=== PATIENT | female | born 1955 | race Caucasian/White ===

== ENCOUNTER 2016-11-30 13:07 | Outpatient (CLI) ==
--- NOTE | 2016-11-30 14:16 | DI ---
EXAM: Lumbar spine five views HISTORY: Low back pain COMPARISON: 04/08/2014 TECHNIQUE: Five views lumbar spine were performed including oblique views FINDINGS: Sacroiliac joints intact. Sacral arcuate lines intact. Mild rightward curvature lumbar spine. Vertebral bodies normal in height. No fracture. No subluxation. Mild and mild to moderate multilevel intervertebral disc space narrowing. Small multilevel marginal osteophyte formation. M ultilevel facet arthrosis. IMPRESSION: Chronic discogenic degenerative disease and facet arthrosis. Rightward curvature lumba r spine.
== END 2016-11-30 13:08 | disposition home or self-care (01) ==
LOC: RAD 13:07
PROVIDERS: ATTEND General Practice
DX: M54.5 Low back pain (principal)

== ENCOUNTER 2017-01-04 13:53 | Outpatient (CLI) ==
--- NOTE | 2017-01-05 09:56 | MRI ---
EXAM: MRI lumbar spine without IV contrast. DATE: 04 January 2017. HISTORY: Lumbar back pain. TECHNIQUE: Sagittal and axial T1W and T2W sequences of the lumbar spine along with sagittal IR and coronal T2W sequences were obtained using 1.2 Suzi magnet. No IV contrast. COMPARISON: LS spine series 30 November 2016. FINDINGS: There are five [id number] lumbar vertebra. Mild rightward curvature of the lumbar s pine is present, with the apex of curvature at L3-4. A 1 mm anterior subluxation of L4 relative to L3 is noted. There is 3.5 mm right lateral subluxation of L4 relative to L5. No other subluxation, acute fracture, osseous malignancy, or pars interarticularis defect is identified. T2W/T1W bone ma rrow signal is heterogeneously bright. Chronic Schmorl's nodes are identified at T10, T11, T12, L1, L2, and L4. Anterolateral osteophytes are observed at multiple lumbar levels. Mild/moderate L1-2, moderate L2-3, moderate L3-4, and mild L5-S1 disc space narrowing is detected. No sacral fracture or stress reaction is identified. SI joints are unremarkable. Conus medullaris terminates at L1. Visible spinal cord is normal. No retroperitoneal lymphadenopathy, paraspinal mass, or aortic aneurysm is detected. Psoas muscles are normal. There is minor bilateral posterior paraspinal muscle fatty infiltration suggesting dedra r atrophy. Visible portions of the liver, spleen, adrenal glands, and kidneys are normal. No bowel obstruction or neoplasm is evident. Segmental analysis: T11-12: Minimal posterior disc bulge does not cause central stenosis or foraminal stenosis. T12-L1: Normal. L1-2: Small concentric disc bulge causes minimal bilateral foraminal encroachment. No central minnie l stenosis. L2-3: Small concentric disc bulge, minor bilateral facet arthropathy, and dorsal epidural fat cause triangulation of the canal and minimal bilateral inferior foraminal encroachment. L3-4: Small concentric disc bulge, mild bilateral facet arthropathy, and dorsal epidural fat cause mild central canal stenosis, minimal right foraminal narrowing, and mild left foraminal stenosis. L eft L3 nerve root touches disc bulge near the lateral margin of the foramen. L4-5: Small concentric disc bulge, superimposed midline disc protrusion (2 mm AP x 15 mm transverse ), minor facet arthropathy cause minor bilateral foraminal narrowing. No central canal stenosis. L5-S1: Small posterior to right foraminal disc bulge and minor right facet arthropathy cause mild r ight foraminal narrowing. The right L5 nerve root contacts the disc bulge near the lateral margin o f the foramen. No central canal stenosis. IMPRESSIONS: 1. Lumbar spine mild dextroscoliosis, mild/moderate spondylosis, mild facet arthropathy, and multil evel DDD. 2. Multilevel foraminal narrowing (minimal/mild). Left L3 and right L5 nerve roots contact disc bu lges near the foramen, and could be sources for pain/radiculopathy. 3. Triangulation of canal at L2-3. Mild central stenosis at L3-4. 4. T2W/T1W bright marrow signal - osteopenia/fatty infiltration. 5. T - L-spine small, chronic Schmorl's nodes.
== END 2017-01-04 13:54 | disposition home or self-care (01) ==
LOC: RAD 13:53
PROVIDERS: ATTEND General Practice
DX: M54.9 Dorsalgia, unspecified (principal); M54.10 Radiculopathy, site unspecified

== ENCOUNTER 2017-02-10 15:41 | Outpatient (CLI) ==
[2017-02-11 06:02] LABS: CALCIUM 9.9 mg/dL (8.2-10.2); MAGNESIUM 2.9 mg/dL (1.7-2.2); POTASSIUM 3.8 mmol/L (3.5-5.10)
== END 2017-02-10 15:42 | disposition home or self-care (01) ==
LOC: LAB 15:41
PROVIDERS: ATTEND General Practice
DX: R25.2 Cramp and spasm (principal); R61 Generalized hyperhidrosis
CPT/HCPCS: 36415; 82310; 83735; 84132

== ENCOUNTER 2017-02-15 06:40 | Outpatient (CLI) ==
--- NOTE | 2017-02-15 14:39 | STRESSECHO ---
Date of Test: 02/15/17 Reason for Exam: CHEST PAIN, FAMILY HX-MOTHER, BROTHER Ordering Physician: MIGUEL Current Medications: HYDROXYZINE, LORAZEPAM, METOPROLOL, RANITIDINE Resting EKG: SINUS RHYTHM/NO ACUTE CHANGES Target Heart Rate: 135/159 STAGE MPH/GRADE HEART RATE BPM BLOOD PRESSURE mmhg RHYTHM S-T SEGMENT +/- UP DOWN SYMPTOMS,COMMENTS At Rest 80 110/60 SR X NONE 1 1.7/10% 2 2.5/12% 3 3.4/14% 4 4.2/16% 5 5.0/18% Immediately after 153 180/90 SR X SHORT OF BREATH Durations of Exercise: 1:22 Maximum Heart Rate Reached: 153 Reason for Termination: SHORT OF BREATH 5 MIN POST EXERCISE: HR 85 BPM, BP 140/80 MMHG, SINUS RHYTHM, +/- INTERPRETATION: 97% OXYGEN SATURATION ON ROOM AIR WITH EXERCISE/ 98% WITH EXERCISE 1. NO EVIDENCE OF ISCHEMIA BY ST-T WAVE 2. NO CHEST PAIN OR CHEST DISCOMFORT 3. POOR EXERCISE TOLERANCE 4. NO ARRHYTHMIAS 5. BLOOD PRESSURE RESPONSE: HYPERTENSION WITH EXERCISE NORMAL LEFT VENTRICULAR CONTRACTILITY--RESTING AND POST EXERCISE MTDD
--- NOTE | 2017-02-15 14:44 | ECHOSTRESS ---
Date of Exam: 02/15/17 Ordering Physician: MIGUEL Reason for Echo: CHEST PAIN, STRESS TEST--NO ISCHEMIA M-Mode Normal Adult Results LV Dimensions Normal Adult Results AoV Opening excursions >1.6 LVEDD-base- 3.5-5.8 Ao root dimensions 2.0-3.7 LVESD-base- 3.1-4.6 L. Atrium dimensions 1.9-3.8 Post. Wall thickness 0.8-1.1 IV septum (thickness) 0.7-1.2 Post. Wall excursion 0.72-1.3 Septal motion Systolic motion R. Ventricular cavity 1.5-2.0 LVEF 60% Paradoxical septal wall motion 2-D: NORMAL LEFT VENTRICULAR CONTRACTILITY--RESTING AND POST EXERCISE M-MODE: MV: AV: TV: PV: CHAMBER SIZE: WALL MOTION: NORMAL LEFT VENTRICULAR CONTRACTILITY--RESTING AND POST EXERCISE PERICARDIUM: INTERPRETATION: 1. NORMAL LEFT VENTRICULAR CONTRACTILITY--RESTING AND POST EXERCISE MTDD
== END 2017-02-15 06:41 | disposition home or self-care (01) ==
LOC: CAR 06:40
PROVIDERS: ATTEND General Practice
DX: R07.9 Chest pain, unspecified (principal)

== ENCOUNTER 2017-02-22 10:11 | Outpatient (RCR) ==
--- NOTE | 2017-02-23 11:00 | RS.OPPTEV2 ---
Date of Note: 02/22/17 Visit #: 1 Date of Evaluation: 02/22/17 Treatment Diagnosis: Low back pain, Right LE pain History of Condition/Mechanism of Injury:: States pain in her right leg has progressively gotten worse. She has had a history of back pain for a few years. States she has recently had more pain, but no specific onset or injury is known. Functional Limitations: Sleep, ADL's, Sitting, Standing, Bending, Squatting, Ambulation, Community Access/Integration Current Subjective/complaints:: Patient reports low back pain with right LE pain. States she cannot tolerate sitting or standing too long. She works for [employer] in housekeeping. States bending, mopping, and sweeping causes increased pain. States she has been trying to walk for exercise, but on the way back, she feels like she might not make it because of increased pain. States some days are worse than others. States she has pain into the right LE on a daily basis. States sometimes it goes all the way to the foot, other times it does not go as far. Reports she occasionally feels like the right leg will give out. States sleep is sometimes affected. Treatment Side (optional): Right Medical History Smoking Status: Former smoker Hx Home Medications: Ultram Patient's Goals: Her goal is to get relief of pain. Pain Assessment - Pain Description Pain Location: low back and right LE Pain Description: Radiating, Aching Current Pain Intensity: 7/10 Worst Pain Intensity: not rated Functional Outcome Measure Oswestry LBP: 54 - G Codes & Severity Modifier G Codes & Modifier: NA Source of G Code score: Na Observation - Observation Posture: Forward Head, Rounded Shoulders, Increased Lumbar Lordosis Gait - Gait Pattern Gait Comments: Patient ambulates without an assistive device with flexed posture at lumbar spine and hips and increased lumbar lordosis. Demonstrates decreased stance on the right LE during stance phase. - ROM Lumbar Flexion: Hand reach to patellae Sidebending to Left: Reach to Mid-thigh Sidebending to Right: Reach to Mid-thigh Comments: Patient reports increased right leg pain with lumbar flexion, extension and side bending to the right. Tolerates lumbar extension to approximately 15 degrees beyond neutral. Right hip joint mobility is very limited into ER and IR. ER ~15-20 degrees, IR to neutral, flexion 95 degrees. Left hip ROM is WFL's. - Strength Trunk Rotation: 4 Good Comments: Right hip strength 4/5, knee and ankle 4+ to 5/5. Left LE 4+ to 5/5. - Special Tests SLR Test: Negative Left, Negative Right Seated Dural Stretch Test: Negative Left, Negative Right SI Joint Compression: Negative Palpation Comments:: Patient reports tenderness with moderate pressure when palpating the sacral region. Reports no specific tenderness with palpation throughout the lumbar spine. Sensation - Sensation Right Lower Extremity: Intact/Normal Left Lower Extremity: Intact/Normal Additional Comments: Additional Comments: Long axis distraction of the right hip joint, patient reports no change. Long axis compression of the right hip joint, patient reports slight discomfort. SLR right 35 degrees, left 45-50 degrees. Interventions - Exercise/Activities/Manual Therapy Exercises/Activities: None today. Manual Therapy: NA - Charges Total Direct Minutes: 50 mins Total Treatment Time: 50 mins Procedures billed for this date of service:: EVAL LOW Assessment Assessment: Patient presents to therapy with a diagnosis of Lumbosacral spondylosis w/o myelopathy. She reports low back and right LE pain. Reports difficulty performing home ADL's, and housekeeping activities required for her work with [employer]. She demonstrates significant limitation of joint mobility of the right hip. Reports tenderness throughout the sacral region, and demonstrates an imbalance of LE flexibility. She will benefit from modalities as indicated to reduce tenderness, with primary focus on stretching and stability exercises to address restrictions of the right hip joint. Patient Education: Education of diagnosis, Body/Joint mechanics, Education of Plan of Care Rehab Potential: Good Short Term Goals Goal #1: Patient independent in basic HEP. Goal to be met by: 03/09/17 Goal #2: Right hip IR and ER increased by 10 degrees. Goal to be met by: 03/09/17 Goal #3: Tenderness at sacral region decreased to minimal. Goal to be met by: 03/09/17 Goal #4: Right SLR to 45 degrees in supine. Goal to be met by: 03/09/17 Correction Goals Goal #1: Pt knows HEP and to continue Ex's to maintain functional level at D/C. Goal to be met by: 04/04/17 Goal #2: Score on Oswestry LBP scale improved to 30. Goal to be met by: 04/04/17 Goal #3: Pt to perform home and work ADL's/activities with minimal back/RLE pain. Goal to be met by: 04/04/17 Goal #4: Pt to ambulate with minimal gait deviations and w/o back/RLE pain. Goal to be met by: 04/04/17 Plan - Treatment to be Provided Procedures: Therapeutic Exercises, Therapeutic Activity, Manual Therapy, Patient Education Modalities: Electrical Stimulation, Ultrasound/Phonophoresis, Cryotherapy, Hot Packs - Treatment Plan Frequency: 3 X week Duration: 4 weeks ORDER # VISITS AND/OR THROUGH DATE: 04/04/17 - Treatment Code (1) Low back pain Qualifiers: Chronicity: acute Back pain laterality: midline Sciatica presence: unspecified whether sciatica present Qualified Description: Acute midline low back pain, with sciatica presence unspecified Qualifier Code(s): ( M54.5) Low back pain (2) Leg pain Qualifiers: Laterality: right Qualified Description: Pain of right lower extremity Qualifier Code(s): (M79.604) Pain in right leg (3) Spondylosis of lumbosacral region without myelopathy or radiculopathy Comments: M47.817
== END 2017-03-09 ==
PROVIDERS: ATTEND Nurse Practitioner
DX: M47.817 Spondylosis without myelopathy or radiculopathy, lumbosacral region (principal); R10.13 Epigastric pain; E05.90 Thyrotoxicosis, unspecified without thyrotoxic crisis or storm
CPT/HCPCS: 36415; 80069; 84443

== ENCOUNTER 2017-02-22 15:52 | Outpatient (CLI) ==
[2017-02-22 17:36] LABS: ALBUMIN 3.9 g/dL (3.4-5.0); ANION GAP 13.9; BUN/CREATININE RATIO 15.58; CALCIUM 9.5 mg/dL (8.2-10.2); CREATININE 0.77 mg/dL (0.60-1.30); PHOSPHORUS 3.3 mg/dL (2.8-4.1); POTASSIUM 3.9 mmol/L (3.5-5.10)
== END 2017-02-22 15:53 | disposition home or self-care (01) ==
LOC: LAB 15:52
PROVIDERS: ATTEND General Practice
DX: R10.13 Epigastric pain (principal); E05.90 Thyrotoxicosis, unspecified without thyrotoxic crisis or storm
CPT/HCPCS: 36415; 80069; 84443

== ENCOUNTER 2017-04-01 09:00 | Outpatient (RCR) ==
--- NOTE | 2017-03-16 12:07 | RS.OPPTDN ---
Subjective Date of Note: 03/16/17 Visit #: 2 Date of Evaluation: 02/22/17 Current Subjective/complaints:: Patient reports continued back pain. States pain is aggravated with initiation of stretching, but feels better following moist heat. Pain Assessment - Pain Description Pain Location: low back and right LE Pain Description: Radiating, Aching Current Pain Intensity: 6-7/10 Other Comments regarding Pain:: Slightly better after stretching and hot pack to lowback. - Heat/Cryotherapy Treatment: Hot Pack ([id number] to lowback following EX. Patient in sitting. ) Interventions - Exercise/Activities/Manual Therapy Exercises/Activities: [id number] Assisted wit stretching of hamstrings, SKTC, DKTC , piriformis, and lower trunk rotation. Then at edge of bed with leg off table, hip flexor stretch. Assisted with all stretching then reviewed patient self- stretching. Patient education of dx, joint mechanics, posture, and HEP. Patient given copies of HEP. Total minutes of Exercise: 20mins Manual Therapy: NA HOME EXERCISE PROGRAM: Hamstring, SKTC, DKTC, piriformins, lower trunk rotation , and hip flexor stretching. - Charges Total Direct Minutes: 20mins Total Treatment Time: 40mins Procedures billed for this date of service:: EX, HP Assessment: Patient with marked muscle tightness in hamstrings and in hip flexors. She will need to work on flexibility before progressing to trunk stability exercises. Patient Education: Education of diagnosis, Body/Joint mechanics, Home Exercise Program, Home Safety Patient demonstrates compliance with HEP?: Yes Short Term Goals Goal #1: Patient independent in basic HEP. Goal to be met by: 03/09/17 Progress towards Goal:: Progressing Goal #2: Right hip IR and ER increased by 10 degrees. Goal to be met by: 03/09/17 Goal #3: Tenderness at sacral region decreased to minimal. Goal to be met by: 03/09/17 Goal #4: Right SLR to 45 degrees in supine. Goal to be met by: 03/09/17 General Machine Operator Goals Goal #1: Pt knows HEP and to continue Ex's to maintain functional level at D/C. Goal to be met by: 04/04/17 Goal #2: Score on Oswestry LBP scale improved to 30. Goal to be met by: 04/04/17 Goal #3: Pt to perform home and work ADL's/activities with minimal back/RLE pain. Goal to be met by: 04/04/17 Goal #4: Pt to ambulate with minimal gait deviations and w/o back/RLE pain. Goal to be met by: 04/04/17 Plan PLAN OF CARE EXPIRES ON:: 04/04/17 ORDER # VISITS AND/OR THROUGH DATE: 04/04/17 PLAN: Progress Exercises (Progress stretching and work toward strengthening exercise to reduce pain and increase funational activity level.)
--- NOTE | 2017-03-18 10:03 | RS.OPPTDN ---
Subjective Date of Note: 03/18/17 Visit #: 3 Date of Evaluation: 02/22/17 Current Subjective/complaints:: Patient reports the back pain radiates into the entire R LE today,does sleep on L side with pillow between her LE's. Pain Assessment - Pain Description Pain Location: low back and right LE Pain Description: Radiating, Aching Current Pain Intensity: 7/10 - Heat/Cryotherapy Treatment: Hot Pack (20 mins. to lumbar in sitting position.) Interventions - Exercise/Activities/Manual Therapy Exercises/Activities: 20 mins. total in supine and R sidelying,including pelvic tilts,SKTC,hamstring stretches,R hip flexor stretches.Attempted piriformis stretches unsuccessfully due to pain. Total minutes of Exercise: 20 Manual Therapy: NA Total minutes of Manual Therapy: 0 HOME EXERCISE PROGRAM: Hamstring, SKTC, DKTC, piriformins, lower trunk rotation , and hip flexor stretching. - Charges Total Direct Minutes: 20 Total Treatment Time: 40 Procedures billed for this date of service:: hp,ex Assessment: Patient has excessive tightness in bilateral piriformis and the R hip flexors,unable to achieve beneficial stretches as these motions cause her severe pain and muscle spasms today.She is attentive to recommendations for pain control and exercises as tolerated. Patient Education: Education of diagnosis, Body/Joint mechanics, Home Exercise Program, Home Safety, Activity Modification, Education of Plan of Care Short Term Goals Goal #1: Patient independent in basic HEP. Goal to be met by: 03/09/17 Progress towards Goal:: Progressing Goal #2: Right hip IR and ER increased by 10 degrees. Goal to be met by: 03/09/17 Goal #3: Tenderness at sacral region decreased to minimal. Goal to be met by: 03/09/17 Goal #4: Right SLR to 45 degrees in supine. Goal to be met by: 03/09/17 Accounts Collector Goals Goal #1: Pt knows HEP and to continue Ex's to maintain functional level at D/C. Goal to be met by: 04/04/17 Progress towards goal: Progressing Goal #2: Score on Oswestry LBP scale improved to 30. Goal to be met by: 04/04/17 Goal #3: Pt to perform home and work ADL's/activities with minimal back/RLE pain. Goal to be met by: 04/04/17 Goal #4: Pt to ambulate with minimal gait deviations and w/o back/RLE pain. Goal to be met by: 04/04/17 Plan PLAN OF CARE EXPIRES ON:: 04/04/17 ORDER # VISITS AND/OR THROUGH DATE: 04/04/17 PLAN: Continue Plan of Care
--- NOTE | 2017-03-21 16:43 | RS.OPPTDN ---
Subjective Date of Note: 03/21/17 Visit #: 4 Date of Evaluation: 02/22/17 Current Subjective/complaints:: Patient c/o being more sore last session. She denies performing HEP because she is too tired after working all day. Pain Assessment - Pain Description Pain Location: low back and right LE Pain Description: Radiating, Aching Current Pain Intensity: 7/10 - Heat/Cryotherapy Treatment: Hot Pack (mid to low back in sitting x 20 mins) Interventions - Exercise/Activities/Manual Therapy Exercises/Activities: 20 mins. total in supine and R sidelying,including pelvic tilts,SKTC,hamstring stretches,R hip flexor stretches. Performed very limited piriformis stretching. Also performed same stretches to the L. Instructed in HS stretch against headboard for home. Manual Therapy: NA HOME EXERCISE PROGRAM: Hamstring, SKTC, DKTC, piriformins, lower trunk rotation , and hip flexor stretching. - Charges Total Direct Minutes: 20 Total Treatment Time: 40 Procedures billed for this date of service:: hp, ex Assessment: Patient continues to have mod to severe back pain extending to the R LE. She has difficulty chika gentle stretches as she is very tight. Patient was encouraged to try heat/bath at home then stretch so that we may gain more flexibility. Patient Education: Education of diagnosis, Body/Joint mechanics, Home Exercise Program, Home Safety, Activity Modification, Education of Plan of Care Short Term Goals Goal #1: Patient independent in basic HEP. Goal to be met by: 03/09/17 Progress towards Goal:: Progressing Goal #2: Right hip IR and ER increased by 10 degrees. Goal to be met by: 03/09/17 Goal #3: Tenderness at sacral region decreased to minimal. Goal to be met by: 03/09/17 Goal #4: Right SLR to 45 degrees in supine. Goal to be met by: 03/09/17 Lining Marker Goals Goal #1: Pt knows HEP and to continue Ex's to maintain functional level at D/C. Goal to be met by: 04/04/17 Progress towards goal: Progressing Goal #2: Score on Oswestry LBP scale improved to 30. Goal to be met by: 04/04/17 Goal #3: Pt to perform home and work ADL's/activities with minimal back/RLE pain. Goal to be met by: 04/04/17 Goal #4: Pt to ambulate with minimal gait deviations and w/o back/RLE pain. Goal to be met by: 04/04/17 Plan PLAN OF CARE EXPIRES ON:: 04/04/17 ORDER # VISITS AND/OR THROUGH DATE: 04/04/17 PLAN: Progress Exercises
--- NOTE | 2017-03-23 10:15 | RS.OPPTDN ---
Subjective Date of Note: 03/23/17 Visit #: 5 Date of Evaluation: 02/22/17 Current Subjective/complaints:: Patient reports moderate pain this mornng in the back,but not radiating into the R LE at this time. Pain Assessment - Pain Description Pain Location: low back and right LE Pain Description: Dull (The radiating ,sciatic pain usually progresses during the day.), Aching Current Pain Intensity: 4/10 - Heat/Cryotherapy Treatment: Hot Pack (20 mis. to lumbar and R hip flexors in sitting) Interventions - Exercise/Activities/Manual Therapy Exercises/Activities: 25 mins. total in supine of SKTC,90/90 hamstring stretches ,gentle stretch to R hip flexors in supine to neutral (from starting in hooklying position ).Stretching to R hip adducotrs.Attempted figure 4 stretch, but unable to tolerate due to pain. Total minutes of Exercise: 25 Manual Therapy: NA Total minutes of Manual Therapy: 0 HOME EXERCISE PROGRAM: Hamstring, SKTC, DKTC, piriformins, lower trunk rotation , and hip flexor stretching. - Charges Total Direct Minutes: 25 Total Treatment Time: 45 Procedures billed for this date of service:: hp,ex 2 Assessment: Patient tolerates the stretches better today,was eventually able to place the R LE onto the mat with knee in full extension.She cannot tolerate crossing either LE across midline due to muscle tightness and pain in the hips and back. Patient Education: Education of diagnosis, Body/Joint mechanics, Home Exercise Program, Home Safety, Activity Modification, Education of Plan of Care Short Term Goals Goal #1: Patient independent in basic HEP. Goal to be met by: 03/09/17 Progress towards Goal:: Progressing Goal #2: Right hip IR and ER increased by 10 degrees. Goal to be met by: 03/09/17 Goal #3: Tenderness at sacral region decreased to minimal. Goal to be met by: 03/09/17 Goal #4: Right SLR to 45 degrees in supine. Goal to be met by: 03/09/17 Ship Liner Goals Goal #1: Pt knows HEP and to continue Ex's to maintain functional level at D/C. Goal to be met by: 04/04/17 Progress towards goal: Progressing Goal #2: Score on Oswestry LBP scale improved to 30. Goal to be met by: 04/04/17 Goal #3: Pt to perform home and work ADL's/activities with minimal back/RLE pain. Goal to be met by: 04/04/17 Goal #4: Pt to ambulate with minimal gait deviations and w/o back/RLE pain. Goal to be met by: 04/04/17 Plan PLAN OF CARE EXPIRES ON:: 04/04/17 ORDER # VISITS AND/OR THROUGH DATE: 04/04/17 PLAN: Continue Plan of Care
--- NOTE | 2017-03-25 10:11 | RS.OPPTDN ---
Subjective Date of Note: 03/25/17 Visit #: 6 Date of Evaluation: 02/22/17 Current Subjective/complaints:: Reports slightly less back pain this AM,no R LE pain when sitting ,but returns with standing. Pain Assessment - Pain Description Pain Location: low back and right LE Pain Description: Sharp, Dull (The radiating ,sciatic pain usually progresses during the day.), Aching Current Pain Intensity: 3/10 - Heat/Cryotherapy Treatment: Hot Pack (20 mins. to lumbar and R hip flexors in sitting position) Interventions - Exercise/Activities/Manual Therapy Exercises/Activities: 20 mins. total in supine of SKTC,90/90 hamstring stretches ,gentle stretch to R hip flexors in supine to neutral (from starting in hooklying position ).Stretching to R hip adductors.Attempted R hip IR/ER stretch ,but unable to tolerate due to pain.Patient also instructed in standing lunges with hands on wall to assist R hip flexor stretch,but unable to use good technique ,also due to pain. Total minutes of Exercise: 20 Manual Therapy: NA Total minutes of Manual Therapy: 0 HOME EXERCISE PROGRAM: Hamstring, SKTC, DKTC, piriformins, lower trunk rotation , and hip flexor stretching. - Charges Total Direct Minutes: 20 Total Treatment Time: 40 Procedures billed for this date of service:: hp,ex Assessment: No significant change today,still presents with lumbar and LE ROM limitations due to muscle tightness and pain elevation with stretches and AROM.The R hip IR/ER is limited and painful. Short Term Goals Goal #1: Patient independent in basic HEP. Goal to be met by: 03/09/17 Progress towards Goal:: Progressing Goal #2: Right hip IR and ER increased by 10 degrees. Goal to be met by: 03/09/17 Progress towards Goal:: No Change Goal #3: Tenderness at sacral region decreased to minimal. Goal to be met by: 03/09/17 Progress towards Goal:: No Change Goal #4: Right SLR to 45 degrees in supine. Goal to be met by: 03/09/17 (N/A) Custodial Goals Goal #1: Pt knows HEP and to continue Ex's to maintain functional level at D/C. Goal to be met by: 04/04/17 Progress towards goal: Progressing Goal #2: Score on Oswestry LBP scale improved to 30. Goal to be met by: 04/04/17 Goal #3: Pt to perform home and work ADL's/activities with minimal back/RLE pain. Goal to be met by: 04/04/17 Progress towards goal: No Change Goal #4: Pt to ambulate with minimal gait deviations and w/o back/RLE pain. Goal to be met by: 04/04/17 Progress towards goal: No Change Plan PLAN OF CARE EXPIRES ON:: 04/04/17 ORDER # VISITS AND/OR THROUGH DATE: 04/04/17 PLAN: Continue Plan of Care
--- NOTE | 2017-03-30 10:23 | RS.OPPTDN ---
Subjective Date of Note: 03/30/17 Visit #: 7 Date of Evaluation: 02/22/17 Current Subjective/complaints:: Patient reports she feels about the same today, antalgic gait upon entering the clinic. Pain Assessment - Pain Description Pain Location: low back and right LE Pain Description: Sharp, Dull (The radiating ,sciatic pain usually progresses during the day.), Aching Current Pain Intensity: 5/10 - Heat/Cryotherapy Treatment: Hot Pack (20 mis. in supine to lumbar and R hip flexors.) Interventions - Exercise/Activities/Manual Therapy Exercises/Activities: 30 mins. total in supine of SKTC,DKTC,90/90 hamstring stretches,gentle stretch to R hip flexors in supine to neutral,attempted piriformis stretches.L hip IR/ER,attempted R hip IR/ER. Total minutes of Exercise: 30 Manual Therapy: NA Total minutes of Manual Therapy: 0 HOME EXERCISE PROGRAM: Hamstring, SKTC, DKTC, piriformins, lower trunk rotation , and hip flexor stretching. - Charges Total Direct Minutes: 30 Total Treatment Time: 50 Procedures billed for this date of service:: hp,ex 2 Assessment: Patient reports feeling more flexible upon standing after treatment today,less antalgic gait.Her tolerance to stretching exercises is limited due to pain .The R hip IR/ER is extremely limited and painful when attempting these motions.She reports sudden pain with attempting hip adduction beyong midline. Patient Education: Education of diagnosis, Body/Joint mechanics, Home Exercise Program, Home Safety, Activity Modification, Education of Plan of Care Short Term Goals Goal #1: Patient independent in basic HEP. Goal to be met by: 03/09/17 Progress towards Goal:: Progressing Goal #2: Right hip IR and ER increased by 10 degrees. Goal to be met by: 03/09/17 Progress towards Goal:: No Change Goal #3: Tenderness at sacral region decreased to minimal. Goal to be met by: 03/09/17 Progress towards Goal:: Progressing Goal #4: Right SLR to 45 degrees in supine. Goal to be met by: 03/09/17 (N/A) Custodial Goals Goal #1: Pt knows HEP and to continue Ex's to maintain functional level at D/C. Goal to be met by: 04/04/17 Progress towards goal: Progressing Goal #2: Score on Oswestry LBP scale improved to 30. Goal to be met by: 04/04/17 Goal #3: Pt to perform home and work ADL's/activities with minimal back/RLE pain. Goal to be met by: 04/04/17 Progress towards goal: No Change Goal #4: Pt to ambulate with minimal gait deviations and w/o back/RLE pain. Goal to be met by: 04/04/17 (less antalgic immediately after PT session) Progress towards goal: Progressing Plan PLAN OF CARE EXPIRES ON:: 04/04/17 ORDER # VISITS AND/OR THROUGH DATE: 04/04/17 PLAN: Continue Plan of Care
--- NOTE | 2017-04-01 10:19 | RS.OPPTDN ---
Subjective Date of Note: 04/01/17 Visit #: 8 Date of Evaluation: 02/22/17 Current Subjective/complaints:: Reports feeling , " a little better today" but the pain at the end of the day averages 8/10. Pain Assessment - Pain Description Pain Location: low back and right LE Pain Description: Sharp, Dull (The radiating ,sciatic pain usually progresses during the day.), Aching Current Pain Intensity: 3/10 at rest Worst Pain Intensity: 7-8/10 - Heat/Cryotherapy Treatment: Hot Pack (20 mins. to lumbar and R hip flexors) Interventions - Exercise/Activities/Manual Therapy Exercises/Activities: 25 mins. total in supine of SKTC,DKTC,90/90 hamstring stretches,gentle stretch to R hip flexors in supine to neutral, piriformis stretches.L hip IR/ER,attempted R hip IR/ER. Total minutes of Exercise: 25 Manual Therapy: NA Total minutes of Manual Therapy: 0 HOME EXERCISE PROGRAM: Hamstring, SKTC, DKTC, piriformins, lower trunk rotation , and hip flexor stretching. - Charges Total Direct Minutes: 25 Total Treatment Time: 45 Procedures billed for this date of service:: hp,ex 2 Assessment: Patient has less muscle guarding present today as her pain is less initially ,but no improvement in the R hip rotation.She has improved tolerance to lumbar stretches for the paraspinals.She reports increased pain as the exercises progress.She has to re-position herself frequently due to back pain. Patient Education: Body/Joint mechanics, Home Exercise Program, Activity Modification, Education of Plan of Care Short Term Goals Goal #1: Patient independent in basic HEP. Goal to be met by: 03/09/17 Progress towards Goal:: Partially Met Goal #2: Right hip IR and ER increased by 10 degrees. Goal to be met by: 03/09/17 Progress towards Goal:: No Change Goal #3: Tenderness at sacral region decreased to minimal. Goal to be met by: 03/09/17 Progress towards Goal:: Progressing Goal #4: Right SLR to 45 degrees in supine. Goal to be met by: 03/09/17 Progress towards Goal:: Progressing Senior Care Goals Goal #1: Pt knows HEP and to continue Ex's to maintain functional level at D/C. Goal to be met by: 04/04/17 Progress towards goal: Progressing Goal #2: Score on Oswestry LBP scale improved to 30. Goal to be met by: 04/04/17 Goal #3: Pt to perform home and work ADL's/activities with minimal back/RLE pain. Goal to be met by: 04/04/17 (tolerates AM tasks better than PM) Progress towards goal: Progressing Goal #4: Pt to ambulate with minimal gait deviations and w/o back/RLE pain. Goal to be met by: 04/04/17 (less antalgic immediately after PT session) Progress towards goal: Progressing Comments: minimal trunk /pelvic dissociation Plan PLAN OF CARE EXPIRES ON:: 04/04/17 ORDER # VISITS AND/OR THROUGH DATE: 04/04/17 PLAN: Plan for Discharge
--- NOTE | 2017-04-04 14:31 | RS.QUICKDC ---
Discharge from PT Date of Discharge: 04/04/17 Number of Visits: 8 Reason for Discharge: Patient is prepping for colonoscopy,but is aware of the D/ C plan that we discussed on the last visit.she reports temporary relief only from PT sessions.
== END 2017-04-08 ==
PROVIDERS: ATTEND Nurse Practitioner
DX: M47.817 Spondylosis without myelopathy or radiculopathy, lumbosacral region (principal)

== ENCOUNTER 2017-05-24 18:48 | Outpatient (CLI) ==
[2017-05-24 18:55] LABS: BASOPHILS % (AUTO) 0.3 % (0.0-3.0); EOSINOPHILS # (AUTO) 0.1 K/ul (0.0-0.7); EOSINOPHILS % (AUTO) 1.8 % (0.0-7.0); HEMATOCRIT 40.9 % (37.0-47.0); HEMOGLOBIN 13.8 g/dl (12.0-16.0); IMMATURE GRANULOCYTE % (AUTO) 0.3 % (0.0-5.0); LYMPHOCYTES # (AUTO) 2.9 K/uL (0.60-3.4); LYMPHOCYTES % (AUTO) 35.9 (10.0-50.0); MEAN CORPUSCULAR HEMOGLOBIN 29.2 pg (27.0-31.0); MEAN CORPUSCULAR HGB CONC 33.7 (31.8-35.4); MEAN CORPUSCULAR VOLUME 86.5 fl (81.0-99.0); MONOCYTES # (AUTO) 0.4 K/uL (0.4-2.0); MONOCYTES % (AUTO) 5.4 (0-10); NEUTROPHILS # (AUTO) 4.5 K/ul (2.0-6.9); NEUTROPHILS % (AUTO) 56.3; PLATELET COUNT 305 10^3/uL (140-440); RED BLOOD COUNT 4.73 10^6/ul (4.20-5.40); WHITE BLOOD COUNT 7.97 K/ul (4.6-10.2)
[2017-05-24 18:56] LABS: BILIRUBIN,URINE Negative (NEGATIVE); KETONES,URINE Negative (NEGATIVE); LEUKOCYTE ESTERASE ,URINE Negative (NEGATIVE); NITRITE,URINE Negative (NEGATIVE); PROTEIN,URINE Negative (NEGATIVE); URINE, BLOOD Negative (NEGATIVE)
[2017-05-24 18:58] LABS: ADD URINE MICROSCOPIC NO
[2017-05-24 19:31] LABS: ALBUMIN 3.9 g/dL (3.4-5.0); ALBUMIN/GLOBULIN RATIO 1.26; ANION GAP 15.7; BILIRUBIN,TOTAL 0.37 mg/dL (0.00-1.20); BUN/CREATININE RATIO 15.27; CALCIUM 9.9 mg/dL (8.2-10.2); CHOL/HDL RATIO 4.5 (4.5-5.5); CREATININE 0.72 mg/dL (0.60-1.30); POTASSIUM 3.7 mmol/L (3.5-5.10)
== END 2017-05-24 18:49 | disposition home or self-care (01) ==
LOC: LAB 18:48
PROVIDERS: ATTEND General Practice
DX: E05.90 Thyrotoxicosis, unspecified without thyrotoxic crisis or storm (principal); G47.00 Insomnia, unspecified; K21.9 Gastro-esophageal reflux disease without esophagitis; R13.10 Dysphagia, unspecified; M54.5 Low back pain; K25.9 Gastric ulcer, unspecified as acute or chronic, without hemorrhage or perforation; F17.200 Nicotine dependence, unspecified, uncomplicated; Z79.899 Other long term (current) drug therapy
CPT/HCPCS: 36415; 80053; 80061; 81001; 84443; 85025

== ENCOUNTER 2017-07-19 12:51 | Outpatient (CLI) ==
--- NOTE | 2017-07-19 14:21 | CT ---
EXAM: CT chest without contrast. HISTORY: Pulmonary nodule follow-up. COMPARISON: CT 08/13/2016. TECHNIQUE: Multiple axial images of the chest were obtained without intravenous contrast. Images we re reformatted in the sagittal and coronal planes. FINDINGS: Thyroid gland is enlarged. Evaluation for lymphadenopathy is limited by lack of intraveno us contrast. Heart size is normal. There is no pericardial effusion. Mild emphysematous changes are present. Tiny noncalcified nodules in the right lung on axial image 1 3, 15, 16, 24, 27, 28 and 38 are stable since the prior study when accounting for differences in slic e selection, measuring less than 0.4 cm. No pleural effusion or pneumothorax identified. Limited images of the upper abdomen are unremarkable save for stable low density medial left hepatic lobe lesion on axial image 55 which is too small to characterize. Degenerative changes present in th e spine. IMPRESSION: Stable micronodules. No acute process.
== END 2017-07-19 12:52 | disposition home or self-care (01) ==
LOC: RAD 12:51
PROVIDERS: ATTEND General Practice
DX: R93.8 Abnormal findings on diagnostic imaging of other specified body structures (principal)

== ENCOUNTER 2017-10-11 13:56 | Outpatient (CLI) | END 2017-10-11 13:57 | disposition home or self-care (01) | LOC: LAB 13:56 | PROVIDERS: ATTEND General Practice | DX: E05.90 Thyrotoxicosis, unspecified without thyrotoxic crisis or storm (principal); Z79.899 Other long term (current) drug therapy | CPT/HCPCS: 36415; 80053; 80061; 81001; 85025 ==

== ENCOUNTER 2017-12-15 14:48 | Outpatient (CLI) | END 2017-12-15 14:49 | disposition home or self-care (01) | LOC: LAB 14:48 | PROVIDERS: ATTEND Physician Assistant Medical | DX: E05.90 Thyrotoxicosis, unspecified without thyrotoxic crisis or storm (principal) | CPT/HCPCS: 36415; 84439; 84443 ==

== ENCOUNTER 2018-02-07 16:10 | Outpatient (CLI) | END 2018-02-07 16:11 | disposition home or self-care (01) | LOC: FCC-LAB 16:10 | PROVIDERS: ATTEND General Practice | DX: E05.90 Thyrotoxicosis, unspecified without thyrotoxic crisis or storm (principal); K21.9 Gastro-esophageal reflux disease without esophagitis; Z79.899 Other long term (current) drug therapy | CPT/HCPCS: 36415; 80053; 80061; 81001; 85025 ==

== ENCOUNTER 2018-02-21 09:20 | Outpatient (CLI) ==
--- NOTE | 2018-02-21 10:56 | US ---
EXAM: Ultrasound abdomen limited right upper quadrant HISTORY: Nausea COMPARISON: None TECHNIQUE: Limited ultrasound abdomen right upper quadrant was performed FINDINGS: Visualized portion pancreas appears normal. Portions of the pancreas obscured secondary t o bowel gas shadowing. Liver normal in size and echogenicity. Main portal vein patent with normal d irection of flow. Gallbladder fluid-filled without gallbladder wall thickening, pericholecystic flui d, or shadowing gallstones. No biliary duct dilation with common bile duct measuring 0.4 cm. IMPRESSION: No abnormality identified in the liver, gallbladder, or biliary system.
== END 2018-02-21 09:21 | disposition home or self-care (01) ==
LOC: RAD 09:20
PROVIDERS: ATTEND General Practice
DX: R11.0 Nausea (principal); R10.9 Unspecified abdominal pain

== ENCOUNTER 2018-03-14 14:31 | Outpatient (CLI) | END 2018-03-14 14:32 | disposition home or self-care (01) | LOC: FCC-LAB 14:31 | PROVIDERS: ATTEND General Practice | DX: E05.90 Thyrotoxicosis, unspecified without thyrotoxic crisis or storm (principal); R11.0 Nausea; R10.9 Unspecified abdominal pain | CPT/HCPCS: 36415; 82150; 83690; 84439; 84443 ==

== ENCOUNTER 2018-03-21 16:05 | Outpatient (CLI) | END 2018-03-21 16:06 | disposition home or self-care (01) | LOC: FCC-LAB 16:05 | PROVIDERS: ATTEND General Practice | DX: R10.9 Unspecified abdominal pain (principal) | CPT/HCPCS: 82272 ==

== ENCOUNTER 2018-04-10 06:44 | Outpatient (CLI) ==
--- NOTE | 2018-04-10 12:00 | NM ---
Exam: Hepatobiliary scintigraphy with gallbladder ejection fraction Date of exam: 04/10/2018. Radiopharmaceutical: 5.4 mCi mebrofenin i.v. and 1.8 mcg of sincalide i.v. HISTORY: Right upper quadrant pain. Ultrasound right upper quadrant performed 02/21/2018. FINDINGS: Following intravenous administration of technetium-99m mebrofenin, sequential abdominal im ages were obtained. There is prompt, uniform accumulation of the tracer by the liver. There is norm al filling of the intrahepatic ducts, common bile duct, and gallbladder with normal excretion of the radiotracer into the duodenum. In order to evaluate the contracted oral response of the gallbladder and response to cholecystokinin, sincalide was administered by slow intravenous infusion. Sequential imaging was obtained for 20 michel kamille after the start of sincalide infusion. These images demonstrate good contraction of the gallblad sergio. The calculated gallbladder ejection fraction is 87%. (Normal ejection fraction is greater than 35%). The patient reported pain and nausea during administration of sincalide. Impression: 1. Gallbladder ejection fraction was calculated to be 87%. 2. The patient reported pain and nausea during administration of sincalide 3. Otherwise normal biliary imaging study.
== END 2018-04-10 06:45 | disposition home or self-care (01) ==
LOC: RAD 06:44
PROVIDERS: ATTEND Family Medicine
DX: R10.11 Right upper quadrant pain (principal); R11.0 Nausea

== ENCOUNTER 2018-05-09 13:00 | Outpatient (RCR) ==
--- NOTE | 2018-04-27 11:55 | RS.OPPTEV2 ---
Date of Note: 04/26/18 Visit #: 1 Date of Evaluation: 02/22/17 Payer Source: Workman's Comp Date of Onset/Injury/Change in Status: 03/22/18 Surgery Performed?: No Treatment Diagnosis: closed nondisplaced fracture of head of L radius with routine healing History of Condition/Mechanism of Injury:: pt fell at [employer] while assisting a client, pt works at [employer]. pt sustained closed nondisplaced fx of head of L radius. Prior Level of Function.....Patient was independent with: ADL's, Self Care, Work /Vocation, Caregiving, Ambulation/Mobility, Community Integration/Access Functional Limitations: ADL's, Reaching, Pushing, Pulling, Lifting, Carrying Current Subjective/complaints:: pt states that she is having pain in L radius as well as in L shld. Treatment Side (optional): Left *Precautions: n/a Medical History Medical History: Arthritis Smoking Status: Former smoker Hx Home Medications: tramadol Patient's Goals: decrease pain in LUE and be able to return to work Pain Assessment - Pain Description Pain Location: L elbow and L shld Pain Description: Tightness, Sharp, Aching Current Pain Intensity: 7/10 Functional Outcome Measure UE Functional Index: 39 (51%) - G Codes & Severity Modifier G Codes & Modifier: n/a Source of G Code score: n/a Observation - Observation Posture: Forward Head, Rounded Shoulders, Increased Thoracic Kyphosis, Decreased Lumbar Lordosis Handedness: Right Girth Measurement Upper: L elbow 27cm. R elbow 25 cm Gait - Gait Pattern General Gait Pattern Observation: No Deviations/Normal General Range of Motion: RUE and BLE WFL's. LUE wrist and hand WFL's, L shld flex 90, abd 95 with pain Muscle Strength: RUE 5/5. BLE 5/5 Elbow ROM: Right WFL's Elbow Muscle Strength: Right WFL's - Left Elbow ROM Left Elbow Extension: -20 Left Elbow Flexion: 128 Left Elbow ROM Limitations: Soft Tissue Tightness, Muscle Weakness, Pain Comments: supination and pronation WFL's - Left Elbow Strength Left Elbow Extension: 3- Fair- Left Elbow Flexion: 3- Fair- Left Forearm Pronation: 3 Fair Left Forearm Supination: 3 Fair Wrist ROM: Bilaterally WFL's Wrist Muscle Strength: Right WFL's Palpation Palpation Findings: Tenderness, Trigger Point, Muscle Guarding Comments:: tenderness over L elbow, as well as L shld biceps tendon insertion, and L Lat scapula Sensation - Sensation Right Upper Extremity: Intact/Normal Left Upper Extremity: Intact/Normal Right Lower Extremity: Intact/Normal Left Lower Extremity: Intact/Normal Balance - Sitting Balance Static Sitting Balance: Normal Dynamic Sitting Balance: Normal - Standing Balance Static Standing Balance: Normal Dynamic Standing Balance: Normal - Heat/Cryotherapy Treatment: Cryotherapy Comments:: L elbow Interventions - Exercise/Activities/Manual Therapy Exercises/Activities: pt performed AROM L wrist, hands, fingers, AAROM L elbow flex/ext, AROM pronation/supination L UE Manual Therapy: NA HOME EXERCISE PROGRAM: pt given written HEP including AROM L wrist, hands, fingers, AAROM L elbow. - Charges Timed Code Treatment Minutes: 47 Total Treatment Time: 58 Procedures billed for this date of service:: eval low, cold pack EVALUATION COMPLEXITY LEVEL EVALUATION COMPLEXITY LEVEL: HISTORY: Low (OA, radius fx), EXAM OF BODY SYSTEMS : Medium (ROM, strength, pain), CLINICAL PRESENTATION: Low, CLINICAL DECISION MAKING: Low Assessment Assessment: pt presents with decreased strength, ROM, pain in L elbow s/p fall suffering nondisplaced fx of head of L radius. Feel pt would benefit from skilled PT for therex for strengthening, ROM and modalities to decrease pain. Patient Education: Activity Modification, Education of Plan of Care Rehab Potential: Good Short Term Goals Goal #1: pt with improved ROM L elbow flex 132 ext -10 Goal to be met by: 05/10/18 Goal #2: pt report pain <5/10 with activity Goal to be met by: 05/10/18 Goal #3: pt independent with inital HEP Goal to be met by: 05/10/18 Goal #4: pt with decreased edema L elbow equal to R Goal to be met by: 05/10/18 [employer]ater Goals Goal #1: pt report ability to perform normal household activities with less pain Goal to be met by: 06/01/18 Goal #2: pt with ROM L elbow WFL's Goal to be met by: 06/01/18 Goal #3: Strength improved LUE 4 to 4+/5 Goal to be met by: 06/01/18 Plan - Treatment to be Provided Procedures: Therapeutic Exercises, Manual Therapy, Massage, Patient Education Modalities: Electrical Stimulation, Cryotherapy, Hot Packs - Treatment Plan Frequency: 2-3x a week Duration: 6 weeks (total of 12 visits approved through work comp) ORDER # VISITS AND/OR THROUGH DATE: 06/01/18 - Treatment Code (1) Pain in left elbow Code(s): M25.522 - PAIN IN LEFT ELBOW (2) Joint effusion of elbow Code(s): M25.429 - EFFUSION, UNSPECIFIED ELBOW Qualifiers: Laterality: left Qualified Code(s): M25.422 - Effusion, left elbow (3) Muscle weakness Code(s): M62.81 - MUSCLE WEAKNESS (GENERALIZED)
--- NOTE | 2018-04-28 15:17 | RS.OPPTDN ---
Subjective Date of Note: 04/28/18 Visit #: 2 Date of Evaluation: 02/22/17 Payer Source: Workman's Comp Treatment Diagnosis: closed nondisplaced fracture of head of L radius with routine healing Current Subjective/complaints:: Patient reports the L elbow is sore, occasionally has swelling in the L hand /fingers.Today she has minimal edema in the L elbow,none in the L hand. *Precautions: n/a Pain Assessment - Pain Description Pain Location: L elbow Pain Description: Dull, Aching Current Pain Intensity: 7/10 - Heat/Cryotherapy Treatment: Hot Pack (20 mins. prior to exercises), Cryotherapy (20 mins. heat prior to exercises,cold 10 mins. after) Interventions - Exercise/Activities/Manual Therapy Exercises/Activities: 25 mins. total ,of stretching to L wrist extensors/flexors ,AAROM for wrist deviation ,sup/pronation,elbow flex/extension.HEP review. Total minutes of Exercise: 25 Manual Therapy: NA Total minutes of Manual Therapy: 0 HOME EXERCISE PROGRAM: pt given written HEP including AROM L wrist, hands, fingers, AAROM L elbow. - Charges Timed Code Treatment Minutes: 25 Total Treatment Time: 55 Procedures billed for this date of service:: hp,ex 2,cp Assessment: Patient has functional ROM in L wrist and elbow ,reports increased with attempting full elbow extension ,but no pain with other exercises.We discussed to do exercises in pain free ROM. Patient Education: Education of diagnosis, Body/Joint mechanics, Home Exercise Program, Home Safety, Activity Modification, Education of Plan of Care Short Term Goals Goal #1: pt with improved ROM L elbow flex 132 ext -10 Goal to be met by: 05/10/18 Progress towards Goal:: Progressing Goal #2: pt report pain <5/10 with activity Goal to be met by: 05/10/18 Goal #3: pt independent with inital HEP Goal to be met by: 05/10/18 Progress towards Goal:: Progressing Goal #4: pt with decreased edema L elbow equal to R Goal to be met by: 05/10/18 Learning Support Teacher Goals Goal #1: pt report ability to perform normal household activities with less pain Goal to be met by: 06/01/18 Goal #2: pt with ROM L elbow WFL's Goal to be met by: 06/01/18 Goal #3: Strength improved LUE 4 to 4+/5 Goal to be met by: 06/01/18 Goal #4: Pt to ambulate with minimal gait deviations and w/o back/RLE pain. Goal to be met by: 04/04/17 (less antalgic immediately after PT session) Progress towards goal: Progressing Plan PLAN OF CARE EXPIRES ON:: 06/01/18 ORDER # VISITS AND/OR THROUGH DATE: 06/01/18 PLAN: Continue PT to reduce pain ,improve motion in L elbow.
--- NOTE | 2018-05-01 14:07 | RS.OPPTDN ---
Subjective Date of Note: 05/01/18 Visit #: 3 Date of Evaluation: 02/22/17 Payer Source: Workman's Comp Treatment Diagnosis: closed nondisplaced fracture of head of L radius with routine healing Current Subjective/complaints:: Reports the L elbow is a little less painful today.She reports not having to use ice for pain control over the weekend. *Precautions: n/a Pain Assessment - Pain Description Pain Location: L elbow Pain Description: Dull, Aching Current Pain Intensity: 5 - Treatment Modality: Ultrasound Parameters/Method Applied: 10 mins. @ 1.0 w/cm2,50% pulsed mode to L radial head area. Patient Position: Sitting - Heat/Cryotherapy Treatment: Hot Pack (20 mins. prior to exercises) Interventions - Exercise/Activities/Manual Therapy Exercises/Activities: 20 mins. total ,AROM for wrist deviation ,sup/pronation, elbow flex/extension with 1.5 #,3/15 reps each.HEP and precautions discussed. Total minutes of Exercise: 20 Manual Therapy: NA Total minutes of Manual Therapy: 0 HOME EXERCISE PROGRAM: pt given written HEP including AROM L wrist, hands, fingers, AAROM L elbow. - Charges Timed Code Treatment Minutes: 30 Total Treatment Time: 50 Procedures billed for this date of service:: hp,ex,US Short Term Goals Goal #1: pt with improved ROM L elbow flex 132 ext -10 Goal to be met by: 05/10/18 Progress towards Goal:: Partially Met Goal #2: pt report pain <5/10 with activity Goal to be met by: 05/10/18 Progress towards Goal:: Progressing Goal #3: pt independent with inital HEP Goal to be met by: 05/10/18 Progress towards Goal:: Progressing Goal #4: pt with decreased edema L elbow equal to R Goal to be met by: 05/10/18 Progress towards Goal:: Progressing Project Management Intern Goals Goal #1: pt report ability to perform normal household activities with less pain Goal to be met by: 06/01/18 Goal #2: pt with ROM L elbow WFL's Goal to be met by: 06/01/18 Goal #3: Strength improved LUE 4 to 4+/5 Goal to be met by: 06/01/18 Goal to be met by: 04/04/17 (less antalgic immediately after PT session) Plan PLAN OF CARE EXPIRES ON:: 06/01/18 ORDER # VISITS AND/OR THROUGH DATE: 06/01/18 PLAN: Continue PT to decrease L elbow pain ,increase strength and ROM.
--- NOTE | 2018-05-04 14:04 | RS.OPPTDN ---
Subjective Date of Note: 05/04/18 Visit #: 4 Date of Evaluation: 02/22/17 Payer Source: Workman's Comp Treatment Diagnosis: closed nondisplaced fracture of head of L radius with routine healing Current Subjective/complaints:: Patient reports L elbow muscle soreness today , but less intense pain when it is present. *Precautions: n/a Pain Assessment - Pain Description Pain Location: L humeroradial joint Pain Description: Dull, Aching Current Pain Intensity: 4 - Heat/Cryotherapy Treatment: Hot Pack (20 mins. prior to exercises) Interventions - Exercise/Activities/Manual Therapy Exercises/Activities: 25 mins. total ,AROM for wrist deviation ,sup/pronation, elbow flex/extension with 1.5 #,3/15 reps each.R hairspring setter strength @35 #,L hairspring setter strength 18# .AROM is 125 -138 degrees,extension is WNL. Total minutes of Exercise: 25 Manual Therapy: NA Total minutes of Manual Therapy: 0 HOME EXERCISE PROGRAM: pt given written HEP including AROM L wrist, hands, fingers, AAROM L elbow. - Charges Timed Code Treatment Minutes: 25 Total Treatment Time: 45 Procedures billed for this date of service:: hp,ex 2 Assessment: Patient has functional ROM in the L humeroradial joint.She is pain free up to 125 flexion ,then increases.No c/o joint pain today with extension. Her L hairspring setter strength is 50 % of the R hairspring setter today.She is attentive to recommendations of the therapy staff,has good awareness of safety precautions. Patient Education: Education of diagnosis, Body/Joint mechanics, Home Exercise Program, Home Safety, Activity Modification, Education of Plan of Care Patient demonstrates compliance with HEP?: Yes Short Term Goals Goal #1: pt with improved ROM L elbow flex 132 ext -10 Goal to be met by: 05/10/18 Progress towards Goal:: Partially Met Goal #2: pt report pain <5/10 with activity Goal to be met by: 05/10/18 Progress towards Goal:: Progressing Goal #3: pt independent with inital HEP Goal to be met by: 05/10/18 Progress towards Goal:: Progressing Goal #4: pt with decreased edema L elbow equal to R Goal to be met by: 05/10/18 Progress towards Goal:: Progressing Supervisor Grips Goals Goal #1: pt report ability to perform normal household activities with less pain Goal to be met by: 06/01/18 Progress towards goal: Progressing Goal #2: pt with ROM L elbow WFL's Goal to be met by: 06/01/18 (painful with full flexion) Progress towards goal: Partially Met Goal #3: Strength improved LUE 4 to 4+/5 Goal to be met by: 06/01/18 Progress towards goal: Progressing Goal to be met by: 04/04/17 (less antalgic immediately after PT session) Plan PLAN OF CARE EXPIRES ON:: 06/01/18 ORDER # VISITS AND/OR THROUGH DATE: 06/01/18 PLAN: Continue PT to reduce/eliminate L elbow pain ,and increase strength in the L UE.
--- NOTE | 2018-05-09 14:09 | RS.OPPTDN ---
Subjective Date of Note: 05/09/18 Visit #: 5 Date of Evaluation: 02/22/17 Payer Source: Workman's Comp Treatment Diagnosis: closed nondisplaced fracture of head of L radius with routine healing Current Subjective/complaints:: Patient had follow-up appt. yesterday,good report.She is returnng back to work on 05-22-18. *Precautions: n/a Pain Assessment - Pain Description Pain Location: L elbow when present Pain Description: muscle soreness Current Pain Intensity: 0 at rest Worst Pain Intensity: "moderate " Other Comments regarding Pain:: "generally less than 5 now " - Heat/Cryotherapy Treatment: Hot Pack (20 mins. prior to exercises) Interventions - Exercise/Activities/Manual Therapy Exercises/Activities: 30 mins. total ,AROM for wrist deviation ,sup/pronation, elbow flex/extension with 2 #,3/15 reps each.Ended session standing and holding 5#,then 10 # with elbow fully extended to assess pain/strength.Wedger Machine strength 22 # on L 30# on R. Total minutes of Exercise: 30 Manual Therapy: NA Total minutes of Manual Therapy: 0 HOME EXERCISE PROGRAM: pt given written HEP including AROM L wrist, hands, fingers, AAROM L elbow. - Charges Timed Code Treatment Minutes: 30 Total Treatment Time: 50 Procedures billed for this date of service:: hp,ex 2 Assessment: Patient progressing ,less tender to palpate today.Her ROM goal is met today,but still has slight pain with end range flexion or extension of the L elbow.She is motivated to improve. Patient Education: Education of diagnosis, Body/Joint mechanics, Home Exercise Program, Home Safety, Activity Modification, Education of Plan of Care Patient demonstrates compliance with HEP?: Yes Short Term Goals Goal #1: pt with improved ROM L elbow flex 132 ext -10 Goal to be met by: 05/10/18 Progress towards Goal:: Met Comments:: flexion 140 ,extension is WNL Goal #2: pt report pain <5/10 with activity Goal to be met by: 05/10/18 Progress towards Goal:: Partially Met Goal #3: pt independent with inital HEP Goal to be met by: 05/10/18 Progress towards Goal:: Partially Met Goal #4: pt with decreased edema L elbow equal to R Goal to be met by: 05/10/18 (L elbow 25.75 cm,R 25 cm) Progress towards Goal:: Progressing Instructor Tap Dancing Goals Goal #1: pt report ability to perform normal household activities with less pain Goal to be met by: 06/01/18 Progress towards goal: Partially Met Goal #2: pt with ROM L elbow WFL's Goal to be met by: 06/01/18 (90%) Progress towards goal: Partially Met Goal #3: Strength improved LUE 4 to 4+/5 Goal to be met by: 06/01/18 (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
== END 2018-05-09 23:59 ==
PROVIDERS: ATTEND Orthopaedic Surgery
DX: S52.125D Nondisplaced fracture of head of left radius, subsequent encounter for closed fracture with routine healing (principal); M25.522 Pain in left elbow; M25.422 Effusion, left elbow; M62.81 Muscle weakness (generalized)

== ENCOUNTER 2018-05-11 14:59 | Outpatient (RCR) ==
--- NOTE | 2018-05-11 14:17 | RS.OPPTDC ---
Date of Discharge: 05/11/18 Date of Evaluation: 02/22/17 Number of Visits: 6 Treatment Diagnosis: closed nondisplaced fracture of head of L radius with routine healing Current Complaints/Gains: Reports dull ache in the L elbow ,but no sharp pain present. Pain Assessment - Pain Description Pain Location: L elbow Pain Description: Dull, Aching Current Pain Intensity: 2 Functional Outcome Measure UE Functional Index: 64 - G Codes & Severity Modifier G Codes & Modifier: NA Source of G Code score: NA General Range of Motion: L elbow flxion 138 ,extension is WNL. Muscle Strength: 4+ to 5-/5 - Heat/Cryotherapy Treatment: Hot Pack (20 mins. prior to exercises) Interventions - Exercise/Activities/Manual Therapy Exercises/Activities: 30 mins. total ,AROM for wrist deviation ,sup/pronation, elbow flex/extension with 2 #,3/15 reps each. 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 Total minutes of Exercise: 30 Manual Therapy: NA Total minutes of Manual Therapy: 0 HOME EXERCISE PROGRAM: pt given written HEP including AROM L wrist, hands, fingers, AAROM L elbow. - Charges Timed Code Treatment Minutes: 30 Total Treatment Time: 50 Procedures billed for this date of service:: hp,ex 2 Assessment Assessment: Patient progressed well ,has 20% deficit ,based on UE functional scale.She ahs normal ROM ,no sharp pain with exercises.She agrees with D/C plan today,feels comfortable with HEP. Patient Education: Education of diagnosis, Body/Joint mechanics, Home Exercise Program, Home Safety, Activity Modification, Education of Plan of Care Rehab Potential: Good Short Term Goals Goal #1: pt with improved ROM L elbow flex 132 ext -10 Goal to be met by: 05/10/18 Progress towards Goal:: Met Goal #2: pt report pain <5/10 with activity Goal to be met by: 05/10/18 Progress towards Goal:: Met Goal #3: pt independent with inital HEP Goal to be met by: 05/10/18 Progress towards Goal:: Met Goal #4: pt with decreased edema L elbow equal to R Goal to be met by: 05/10/18 (L elbow 25.75 cm,R 25 cm) Progress towards Goal:: Partially Met Group Home Goals Goal #1: pt report ability to perform normal household activities with less pain Goal to be met by: 06/01/18 Progress towards goal: Met Goal #2: pt with ROM L elbow WFL's Goal to be met by: 06/01/18 (90%) Progress towards goal: Met Goal #3: Strength improved LUE 4 to 4+/5 Goal to be met by: 06/01/18 (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
== END 2018-06-09 23:59 ==
PROVIDERS: ATTEND Orthopaedic Surgery
DX: S52.125D Nondisplaced fracture of head of left radius, subsequent encounter for closed fracture with routine healing (principal); M62.81 Muscle weakness (generalized); M25.422 Effusion, left elbow; M25.522 Pain in left elbow

== ENCOUNTER 2018-07-18 14:02 | Outpatient (CLI) | END 2018-07-18 14:03 | disposition home or self-care (01) | LOC: RHC-LAB 14:02 | PROVIDERS: ATTEND General Practice | DX: E05.90 Thyrotoxicosis, unspecified without thyrotoxic crisis or storm (principal) | CPT/HCPCS: 36415; 84443 ==

== ENCOUNTER 2018-08-01 16:06 | Outpatient (CLI) | END 2018-08-01 16:07 | disposition home or self-care (01) | LOC: FCC-LAB 16:06 | PROVIDERS: ATTEND Family Medicine | DX: E07.9 Disorder of thyroid, unspecified (principal) | CPT/HCPCS: 36415; 84439; 84480 ==

== ENCOUNTER 2018-08-22 10:31 | Outpatient (CLI) ==
--- NOTE | 2018-08-23 09:51 | MAMMO ---
EXAM: Bilateral digital screening mammogram (2-D and 3-D) History: Screening Comparison: Bilateral mammogram 08/16/2017 Findings: MLO and CC views of bilateral breasts demonstrate scattered fibroglandular breast parenchy ma. CAD was reviewed by the radiologist. Tomosynthesis was performed. Stable benign bilateral nick st calcifications. There are no dominant masses, no suspicious microcalcifications and no architectu ral distortions Impression: Benign stable mammogram. Recommend followup routine screening mammography in 1 year. BIRADS 2
== END 2018-08-22 10:32 | disposition home or self-care (01) ==
LOC: RAD 10:31
PROVIDERS: ATTEND Family Medicine
DX: Z12.31 Encounter for screening mammogram for malignant neoplasm of breast (principal)

== ENCOUNTER 2018-12-12 16:28 | Outpatient (CLI) | END 2018-12-12 16:29 | disposition home or self-care (01) | LOC: RHC-LAB 16:28 | PROVIDERS: ATTEND General Practice | DX: R53.83 Other fatigue (principal); E05.90 Thyrotoxicosis, unspecified without thyrotoxic crisis or storm; Z79.899 Other long term (current) drug therapy; R35.0 Frequency of micturition; N39.43 Post-void dribbling | CPT/HCPCS: 36415; 80053; 80061; 81001; 84443; 85025 ==

== ENCOUNTER 2019-01-02 09:22 | Outpatient (CLI) ==
--- NOTE | 2019-01-02 20:12 | CT ---
EXAM: CT abdomen pelvis with and without contrast HISTORY: Epigastric pain COMPARISON: None TECHNIQUE: CT abdomen pelvis performed with and without intravenous contrast. Coronal and sagittal reformatted images obtained. FINDINGS: Mild bibasilar atelectasis. No free air. No acute abnormalities of the bones. Degenerat jackie change in the spine. Osteoarthritis of the hips. Heart normal in size. Sub centimeter hypodens ity in the liver, too small to characterize. Gallbladder unremarkable. Pancreas unremarkable. Sple en unremarkable. Adrenals unremarkable. No hydronephrosis or nephrolithiasis. Bladder unremarkable . Patient status post hysterectomy. Aorta normal in caliber. Mild atherosclerosis. Stomach unrema rkable. No dilated loops small bowel. Appendix appears normal. Colonic diverticulosis. No lymphad enopathy or ascites. Small fat-containing periumbilical hernia. IMPRESSION: 1. No acute abnormality identified in the abdomen orpelvis. 2. Colonic diverticulosis. 3. Atherosclerosis.
== END 2019-01-02 09:23 | disposition home or self-care (01) ==
LOC: RAD 09:22
PROVIDERS: ATTEND General Practice
DX: R10.13 Epigastric pain (principal); K25.9 Gastric ulcer, unspecified as acute or chronic, without hemorrhage or perforation

== ENCOUNTER 2019-02-26 09:12 | Outpatient (CLI) | END 2019-02-26 09:13 | disposition home or self-care (01) | LOC: RHC-LAB 09:12 | PROVIDERS: ATTEND General Practice | DX: E05.90 Thyrotoxicosis, unspecified without thyrotoxic crisis or storm (principal); Z00.00 Encounter for general adult medical examination without abnormal findings | CPT/HCPCS: 36415; 80053; 80061; 81001; 83735; 84443; 85025 ==